=== PATIENT | female | born 1950 | race Caucasian/White ===

== ENCOUNTER 2023-04-14 06:15 | Outpatient (CLI) | payer MEDICARE ==
[~2023-04-14] VITALS: Ht 160.1 cm; Wt 68.2 kg
[2023-04-14] MEDS ORDERED: ZOLP5TAB PO (14:15)
[2023-04-14] MEDS ORDERED: ASPI-999 PO (14:15)
[2023-04-14] MEDS ORDERED: CALC-308 PO (14:15)
[2023-04-14] MEDS ORDERED: MV-M1CAP24 PO (14:15)
[2023-04-14] MEDS ORDERED: ASCO100024 PO (14:15)
[2023-04-14] MEDS ORDERED: NF-VITD400 PO (14:15)
== END 2023-04-14 16:22 | disposition home or self-care (01) ==
LOC: PREOP 06:15
PROVIDERS: ATTEND Specialist
DX: Z01.818 Encounter for other preprocedural examination (principal)

== ENCOUNTER 2023-04-16 09:34 | Day surgery (SDC) | payer MEDICARE ==
[~2023-04-16] VITALS: Ht 160.1 cm; Wt 68.2 kg
[~2023-04-16 09:34] MED LIST: ASCO100024 PO; ASPI-999 PO; CALC-308 PO; MV-M1CAP24 PO; NF-VITD400 PO; ZOLP5TAB PO
[2023-04-16] MEDS ORDERED: MIDAZOLAM INJ 2 MG/2 ML VIAL ONE (09:38)
[2023-04-16] MEDS ORDERED: POVIDONE IODINE OPHTH SOLN 5% 30 ML OP ONE (09:45)
[2023-04-16] MEDS ORDERED: TIMOLOL 0.5% (CATARACTS) 0.3 ML BTL OU PRN (09:45)
[2023-04-16] MEDS ORDERED: LIDOCAINE PF 1% 2 ML VIAL IR PRN (09:45)
[2023-04-16] MEDS ORDERED: MOXIFLOXACIN OPHTH SOLN 5 MG/ML 0.3 ML SYRINGE OP ONE (09:45)
[2023-04-16] MEDS: TETRACAINE 0.5% OPHTH SOLN 4 ML BTL (SINGLE DOSE ONLY) OU PRN ×4 (09:51→10:07)
[2023-04-16] MEDS: TROPICAMIDE 1% OPH SOLN (MYDRIACYL) 15 ML BTL OP SCH ×3 (09:57→10:07)
[2023-04-16] MEDS: PHENYLEPHRINE 10% OPHTH SOLN 5 ML BTL OU SCH ×3 (09:57→10:07)
[2023-04-16 10:00] VITALS: BP 170/68
--- NOTE | 2023-04-16 10:41 | Ophthalmologist Pre-Op Note ---
Pre-Operative Progress Note H&P Reviewed The H&P was reviewed, patient examined and no changes noted. Date H&P Reviewed: Apr 16, 2023 Time H&P Reviewed: 10:41 Pre-Op Dx Cataract, Right Eye DIO DAWN MD Apr 16, 2023 10:41
--- NOTE | 2023-04-16 11:03 | Ophthalmology Operative Report ---
Cataract removal/placement IOL PREOPERATIVE DIAGNOSIS: Cataract Right Eye POSTOPERATIVE DIAGNOSIS: Cataract Right Eye PROCEDURE: Cataract removal and placement of posterior chamber implant, right eye SURGEON: Karlo Dawn ANESTHESIA: Topical with sedation COMPLICATIONS: None ESTIMATED BLOOD LOSS: Minimal DESCRIPTION OF PROCEDURE: After proper informed consent was obtained, the patient, a 73 female, was taken to the Operating Room and the right eye was anesthetized with tetracaine. The right eye was then prepped and draped in the usual manner. A wire lid speculum was placed. A paracentesis was made at the left hand position. Preservative free lidocaine was injected into the anterior chamber followed by viscoelastic. A clear corneal incision was made in the temporal position. A capsulorrhexis was preformed and the central nuclear and cortical material were removed. The posterior capsule was polished and Radu 14.5 AU00T0 IOL was placed into the capsular bag. The residual viscoelastic was aspirated and balanced saline solution was injected into the anterior chamber. Moxifloxacin was injected into the anterior chamber. The wound was checked and found to be water tight. The patient tolerated the procedure well without complications. KARLO DAWN MD Apr 16, 2023 11:03
[2023-04-16 11:05] VITALS: BP 166/72
--- NOTE | 2023-04-16 11:23 | Anesthesia-General Post-Op ---
MAC Patient Condition Mental Status/LOC: Same as Preop Cardiovascular: Satisfactory Nausea/Vomiting: Absent Respiratory: Satisfactory Pain: Controlled Complications: Absent Post Op Complications Complications None Follow Up Care/Instructions Patient Instructions None needed. Anesthesiology Discharge Order Discharge Order Patient is doing well, no complaints, stable vital signs, no apparent adverse anesthesia problems. No complications reported per nursing. DEVIN GALDAMEZ CRNA Apr 16, 2023 11:23
== END 2023-04-16 11:06 | disposition home or self-care (01) ==
LOC: SDC 09:34
PROVIDERS: ATTEND Specialist
DX: H25.9 Unspecified age-related cataract (principal)
CPT/HCPCS: 66984; V2632

== ENCOUNTER 2023-05-04 05:35 | Outpatient (CLI) | payer MEDICARE ==
[2023-05-04] MEDS ORDERED: CETI10CA PO (08:35)
== END 2023-05-04 08:48 | disposition home or self-care (01) ==
LOC: PREOP 05:35
PROVIDERS: ATTEND Specialist
DX: Z01.818 Encounter for other preprocedural examination (principal)

== ENCOUNTER → 2023-05-07 | Day surgery (SDC) | payer MEDICARE ==
[~2023-05-07] VITALS: Ht 160 cm; Wt 68.2 kg
[~2023-05-07] MED LIST changes: +CETI10CA PO; +LIDOCAINE PF 1% 2 ML VIAL IR PRN; +MIDAZOLAM INJ 2 MG/2 ML VIAL ONE; +MOXIFLOXACIN OPHTH SOLN 5 MG/ML 0.3 ML SYRINGE OP ONE; +POVIDONE IODINE OPHTH SOLN 5% 30 ML OP ONE; +TIMOLOL 0.5% (CATARACTS) 0.3 ML BTL OU PRN
[2023-05-07] MEDS: TETRACAINE 0.5% OPHTH SOLN 4 ML BTL (SINGLE DOSE ONLY) OU PRN ×4 (10:28→10:44)
[2023-05-07 10:30] VITALS: BP 179/65
[2023-05-07] MEDS: TROPICAMIDE 1% OPH SOLN (MYDRIACYL) 15 ML BTL OP SCH ×3 (10:36→10:44)
[2023-05-07] MEDS: PHENYLEPHRINE 10% OPHTH SOLN 5 ML BTL OU SCH ×3 (10:37→10:44)
--- NOTE | 2023-05-07 11:19 | Ophthalmologist Pre-Op Note ---
Pre-Operative Progress Note H&P Reviewed The H&P was reviewed, patient examined and no changes noted. Date H&P Reviewed: May 07, 2023 Time H&P Reviewed: 11:19 Pre-Op Dx Cataract, Left Eye DIO DAWN MD May 07, 2023 11:19
--- NOTE | 2023-05-07 11:38 | Ophthalmology Operative Report ---
Cataract removal/placement IOL PREOPERATIVE DIAGNOSIS: Cataract Left Eye POSTOPERATIVE DIAGNOSIS: Cataract Left Eye PROCEDURE: Cataract removal and placement of posterior chamber implant, left eye SURGEON: Karlo Dawn ANESTHESIA: Topical with sedation COMPLICATIONS: None ESTIMATED BLOOD LOSS: Minimal DESCRIPTION OF PROCEDURE: After proper informed consent was obtained, the patient, a 73 female, was taken to the Operating Room and the left eye was anesthetized with tetracaine. The left eye was then prepped and draped in the usual manner. A wire lid speculum was placed. A paracentesis was made at the left hand position. Preservative free lidocaine was injected into the anterior chamber followed by viscoelastic. A clear corneal incision was made in the temporal position. A capsulorrhexis was preformed and the central nuclear and cortical material were removed. The posterior capsule was polished and an Radu 16.0 AU00T0 was placed into the capsular bag. The residual viscoelastic was aspirated and balanced saline solution was injected into the anterior chamber. Moxifloxacin was injected into the anterior chamber. The wound was checked and found to be water tight. The patient tolerated the procedure well without complications. KARLO DAWN MD May 07, 2023 11:38
[2023-05-07 11:44] VITALS: BP 144/70
--- NOTE | 2023-05-07 12:58 | Anesthesia-General Post-Op ---
MAC Patient Condition Mental Status/LOC: Same as Preop Cardiovascular: Satisfactory Nausea/Vomiting: Absent Respiratory: Satisfactory Pain: Controlled Complications: Absent Post Op Complications Complications None Follow Up Care/Instructions Patient Instructions None needed. Anesthesiology Discharge Order Discharge Order Patient is doing well, no complaints, stable vital signs, no apparent adverse anesthesia problems. No complications reported per nursing. GABY ALFARO CRNA May 07, 2023 12:58
== END | disposition home or self-care (01) ==
LOC: SDC 10:21
PROVIDERS: ATTEND Specialist
DX: H25.9 Unspecified age-related cataract (principal)
CPT/HCPCS: 66984; V2632